=== PATIENT | female | born 1960 | race Two or more races ===

== ENCOUNTER 2019-08-17 08:42 | Emergency (ER) | payer OTHER ==
[~2019-08-17] VITALS: Ht 154.9 cm; Wt 85.3 kg
[~2019-08-17 08:42] MED LIST: ATENOLOL25 MG PO
[2019-08-17] MEDS ORDERED: ATORVASTATIN CA20 MG (08:57)
[2019-08-17] MEDS ORDERED: JANUMET 50-1,01 EACH (08:57)
[2019-08-17] MEDS ORDERED: GLIMEPIRIDE2 MG (08:58)
[2019-08-17] MEDS ORDERED: NAPR500T14 PO (13:24)
[2019-08-17] MEDS ORDERED: BACTRIM DS TAB1 EACH PO (13:24)
== END 2019-08-17 14:09 | disposition home or self-care (01) ==
LOC: ER 08:42
DX: N39.0 Urinary tract infection, site not specified (principal); M54.5 Low back pain

== ENCOUNTER 2021-01-26 18:07 | Emergency (ER) | payer OTHER ==
[~2021-01-26] VITALS: Ht 154.9 cm; Wt 85.7 kg
[~2021-01-26 18:07] MED LIST changes: +ATORVASTATIN CA20 MG; +BACTRIM DS TAB1 EACH PO; +GLIMEPIRIDE2 MG; +JANUMET 50-1,01 EACH; +NAPR500T14 PO
[2021-01-27] MEDS ORDERED: MOXIFLOXACIN H400 MG PO (00:44)
[2021-01-27] MEDS ORDERED: MUCINEX DM ER1 EAC1 PO (00:44)
[2021-01-27] MEDS ORDERED: XOPENEX0.63 MG/3 IH (00:44)
[2021-01-27] MEDS ORDERED: MEDROLPACK PO (00:44)
== END 2021-01-27 01:13 | disposition home or self-care (01) ==
LOC: ER 18:07
DX: J20.9 Acute bronchitis, unspecified (principal); R06.02 Shortness of breath; Z11.52 Encounter for screening for COVID-19

== ENCOUNTER 2022-01-28 16:16 | Inpatient (IN) | payer OTHER ==
[~2022-01-28] VITALS: Ht 154.9 cm; Wt 81.6 kg
[~2022-01-28 16:16] MED LIST changes: +MEDROLPACK PO; +MOXIFLOXACIN H400 MG PO; +MUCINEX DM ER1 EAC1 PO; +XOPENEX0.63 MG/3 IH
[2022-01-28] MEDS ORDERED: ZESTRIL10 M1 (16:38)
[2022-01-29] MEDS ORDERED: SEMGLEE100 UNIT/1 (13:04)
[2022-01-29] MEDS ORDERED: TRIJARDY XR 121 EACH (13:04)
[2022-01-29] MEDS ORDERED: PREDNISONE20 M1 (13:05)
[2022-01-29] MEDS ORDERED: MONTELUKAST SOD10 MG (13:05)
[2022-01-29] MEDS ORDERED: ATORVASTATIN CA20 MG (13:05)
[2022-01-29] MEDS ORDERED: LOSARTAN POTASS25 MG (13:05)
[2022-01-29] MEDS ORDERED: VITAMIN D31250 MCG (13:05)
[2022-02-04] MEDS ORDERED: IPRATROPIU0.2 MG/1 M IH (17:46)
[2022-02-04] MEDS ORDERED: FAMOTIDINE20 MG PO (17:46)
[2022-02-04] MEDS ORDERED: LISINOPRIL5 MG PO (17:46)
[2022-02-04] MEDS ORDERED: LIPITOR20 MG PO (17:46)
[2022-02-04] MEDS ORDERED: XOPENEX0.63 MG/3 IH (17:46)
[2022-02-04] MEDS ORDERED: GABAPENTIN100 MG PO (17:46)
[2022-02-04] MEDS ORDERED: BENZONATATE200 M1 PO (18:09)
== END 2022-02-04 19:41 | disposition home or self-care (01) | DRG 203 ==
LOC: ER 16:16 → MEDI 01-29 11:38
PROVIDERS: ADMIT Internal Medicine; ATTEND Internal Medicine
PROC: B246YZZ Ultrasonography of Right and Left Heart using Other Contrast (ICD-10-PCS; principal; 2022-01-29)
DX: J45.901 Unspecified asthma with (acute) exacerbation (principal); J20.8 Acute bronchitis due to other specified organisms; R09.02 Hypoxemia; I10 Essential (primary) hypertension; E11.40 Type 2 diabetes mellitus with diabetic neuropathy, unspecified; E11.65 Type 2 diabetes mellitus with hyperglycemia; E78.49 Other hyperlipidemia; G47.33 Obstructive sleep apnea (adult) (pediatric); E66.8 Other obesity; Z20.822 Contact with and (suspected) exposure to COVID-19; Z79.4 Long term (current) use of insulin